=== PATIENT | female | born 1970 | race Caucasian/White ===

== ENCOUNTER 2019-06-12 09:01 | Inpatient (IN) ==
--- NOTE | 2019-06-12 09:37 | Emergency Department Note ---
Disposition Clinical Impression: Symptomatic anemia Fall Qualifiers: Encounter type: initial encounter Qualified Code(s): W19.XXXA - Unspecified fall, initial encounter Disposition: Admitted As Inpatient Condition: Fair Time of Disposition: 10:52 Fall HPI - General Chief Complaint: ED Fall Stated Complaint: tripped and fell at home Time Seen by Provider: 06/12/19 09:09 Source: patient, EMS Mode of arrival: EMS Limitations: no limitations Nursing Notes Reviewed: Yes Vital Signs Reviewed: Yes - History of Present Illness Pt Subjective Complaint: fall Onset (ago): Just [employer] Fall From: standing Fall Witnessed: yes Place Fall Occurred: home Loss of Consciousness: none Prolonged Down Time?: no Symptoms Prior to Fall: other (Patient said that her legs felt weak but she is very clear that the reason that she fell was that she caught her foot against the coffee table and caused her to trip) Context: tripped/slipped (Foot caught on a coffee table as she was getting up to answer the door to let her wound care nurse in the house to evaluate her dressings.) Location of injury: head (Patient they she hit her head) Location of injury - extremities: Left: ankle (Scraped lateral ankle) Severity: none Associated symptoms (after fall): Reports: denies - Related Data Home Medications Medication Instructions Recorded Confirmed Atorvastatin [Lipitor] 40 mg PO HS 10/06/18 06/12/19 Multivit-Min/Iron/Folic Acid/K 1 each PO DAILY 10/06/18 06/12/19 [Adults Multivitamin Caplet] Ascorbic Acid/Ascorbate Sodium 500 mg PO DAILY 11/13/18 06/12/19 [Vitamin C 500 mg Wafer] Famotidine [Acid Controller] 20 mg PO DAILY 12/17/18 06/12/19 Previous Rx's Medication Instructions Recorded HydrOXYzine [Atarax] 10 mg PO HS PRN #30 tablet 10/13/18 ALPRAZolam [Xanax 0.25 MG Tablet] 0.25 mg PO BID PRN 30 Days #60 12/02/18 tablet Doxycycline 100 mg PO BID #60 capsule 03/31/19 Charcoal/Alg/Hydrocolloid 5 each TP AD #30 bandage 04/01/19 [Carboflex 4"X4" Dressing] Dexamethasone [Decadron] 4 mg PO BID #45 tab 04/09/19 Lidocaine/Prilocaine [Emla] 1 appl TP AD PRN #30 gm 04/09/19 Magic Mouthwash [Magic Mouthwash 10 ml PO QID PRN #240 ml 04/09/19 BLM] Prochlorperazine Maleate 10 mg PO Q8HR PRN #60 tablet 04/09/19 [Compazine] Silver Sulfadiaz/Foam Bandage 1 each TP 3XW #42 bandage 04/10/19 [Allevyn Ag Adhesive 7"X7"] Meclizine HCl [Verticalm] 25 mg PO QID PRN #30 tablet 05/02/19 OxyCODONE Immed Rel [Roxicodone 5 5 mg PO Q8H PRN 30 Days #90 tablet 05/08/19 MG] Hydrocolloid Dressing [Duoderm] 1 each TP BID #1 pkg 05/25/19 Pegfilgrastim [Neulasta (For 6 mg SQ ONCE #1 syringe 05/25/19 Outpatient Infusion)] Allergies Allergy/AdvReac Type Severity Reaction Status Date / Time No Known Allergies Allergy Verified 05/02/19 11:05 All systems ED: reviewed and negative except as stated. Constitutional: Denies: fever Cardiovascular: Denies: chest pain, palpitations Respiratory: Denies: cough, dyspnea Gastrointestinal: Denies: abdominal pain, nausea, vomiting Musculoskeletal: Denies: back pain, neck pain, arthralgia Integumentary: Reports: abrasion (Lateral left ankle) Neurological: Denies: headache Fall PMH - Past Medical History Medical history: Reports: cancer, hyperlipidemia, other Surgical history: Reports: appendectomy, cancer surgery (Right breast biopsy, be ing evaluated for further surgery) Psychiatric history: Reports: no psych history - Social History Smoking Status: Never smoker Alcohol use: Reports: none Drug use: Reports: none Physical Exam - General Limitations: no limitations General appearance: alert, in no apparent distress - Head Head exam: atraumatic, normocephalic, normal inspection - Eye Eye exam: Present: normal appearance, PERRL, EOMI. Absent: scleral icterus, conjunctival injection - ENT ENT exam: normal exam, normal oropharynx, mucous membranes moist, normal external ear exam - Neck Neck exam: Present: normal inspection, full ROM, trachea midline - Chest Chest inspection: Present: normal inspection, symmetric chest wall rise. Absent: tenderness - Respiratory Respiratory exam: Present: normal lung sounds bilaterally. Absent: respiratory distress - Cardiovascular Cardiovascular exam: Present: regular rate, normal rhythm, normal heart sounds - Abdominal Exam Abdominal exam: Present: soft, Non-Tender, normal bowel sounds - Extremities Exam Extremities exam: Present: normal inspection, full ROM. Absent: tenderness, joint swelling - Back Exam Back exam: Present: full ROM. Absent: tenderness - Neurological Exam Neurological exam: Present: alert, oriented X3. Absent: motor sensory deficit - Psychiatric Psychiatric exam: Present: normal affect, normal mood - Skin Skin exam: Present: warm, dry Course Course Narrative: Patient says she had a mechanical fall and gives a very good description as to why she went down on the ground. However she says her legs did feel a bit wobbly and she had a hard time getting herself back up off the floor. She says she feels fine now here in the department. She thinks she hit her head. I am going to go ahead and CT her head and cervical spine. As far as the weakness and wobbliness, she is being treated for breast cancer and that by itself certainly could generate generalized weakness but one make sure she is not havi ng electrolytes abnormality or anemia or other issue. I will check some labs as well. Disposition will be based on diagnostic results and reevaluation. - Reevaluation(s) Reevaluation #1: CT scan of the head and cervical spine are negative. Shoulder x-rays negative. Patient's lab work came back showing an elevated white count but she is on Neulasta so that is not a surprise. Her hemoglobin was only 7.3. It has been trending down over the last couple of hemoglobin checks since May 22. I went and called the oncology department up at [facility] where the patient gets her treatment. She has an appointment scheduled for today. They felt that the patient getting a unit of blood would be the best thing and they would go ahead and reschedule the follow-up appointment. I went and spoke with Dr. Ag, our hospitalist here and he reduced that the patient for admission and transfusion. Time: 10:49 Reevaluation #2: Patient is been tachycardic since arrival but she had a small episode just a few minutes ago where she says she really feel good her blood pressure dipped down i nto the 90s. It bounced back up to the 110 systolic range with a heart rate is remained 120. We expect this to improve with the blood transfusion. I have ordered a liter of saline at this point as a bolus. Time: 11:17 - Consultations Consultation #1: [facility] oncology - I discussed the case with the oncology staff. I spoke with and she who was speaking with the patient's oncology nurse. They did not feel the patient is to be transferred up there. They did recommend transfusion and they will rearrange his follow-up outpatient appointment. Time: 10:35 Consultation #2: Dr. Ag, hospitalist - I discussed the case with the hospitalist. He is accepting the patient for admission Time: 10:45 Vital Signs Temperature 98 F 06/12/19 09:03 Pulse Rate 128 06/12/19 09:03 Respiratory Rate 18 06/12/19 09:03 Blood Pressure 109/70 06/12/19 09:03 O2 Sat by Pulse Oximetry 96 06/12/19 09:03 Temperature 98 F 06/12/19 09:03 Pulse Rate 128 06/12/19 11:04 Respiratory Rate 18 06/12/19 11:04 Blood Pressure 91/70 06/12/19 11:04 O2 Sat by Pulse Oximetry 95 06/12/19 11:04 Oxygen Delivery Oxygen Delivery Room Air Fall - Medical Records Medical records reviewed: Yes I reviewed the patient's medical records. - Lab Data Lab results reviewed: Yes I reviewed the patient's lab results. Result diagrams: 06/12/19 09:37 06/12/19 09:37 Lab Results 06/12/19 06/12/19 Range/Units 09:37 09:37 WBC 54.0 H* (4.3-11.1) K/mcL RBC 2.52 L (3.82-4.97) M/mcL Hgb 7.3 L (11.5-15.4) g/dL Hct 22.8 L (35.3-44.9) % MCV 90.5 (83.0-100.0) fL MCH 29.0 (28.0-33.3) pg MCHC 32.0 (31.6-35.5) g/dL RDW 20.2 H (11.5-14.5) % Plt Count 259 (140-400) K/mcL MPV 10.2 (9.4-12.4) fL Seg Neutrophils % 70.0 % Band Neutrophils % 10.0 H (0-4) % Lymphocytes % 6.0 % Monocytes % 2.0 % Metamyelocytes % 6.0 H (0) % Myelocytes % 4.0 H (0) % Promyelocytes % 2.0 H (0) % Neutrophils # 43.2 H (1.6-8.9) K/mcL Lymphocytes # 3.2 (0.6-4.6) K/mcL Monocytes # 1.1 (0.0-1.3) K/mcL Nucleated RBCs/100 WBC 0.2 H (0) /100 WBC Toxic Granulation Present A (Not Present) Toxic Vacuolation Present A (Not Present) Platelet Estimate Normal (Normal) Polychromasia 1+ A (Not Present) Sodium 133 L (136-145) mEq/L Potassium 3.7 (3.5-5.1) mEq/L Chloride 98 (98-107) mEq/L Carbon Dioxide 24 (23-29) mEq/L BUN 23 H (6-20) mg/dL Creatinine 1.22 H (0.60-1.20) mg/dL Est GFR ( Amer) 57 L (> 60) Est GFR (Non-Af Amer) 47 L (> 60) BUN/Creatinine Ratio 19 (6-26) Glucose 142 H (70-105) mg/dL Calculated Osmolality 282 (280-300) Calcium 9.4 (8.6-10.3) mg/dL - Radiology Data Radiology results reviewed: Yes I reviewed the patient's radiology results.
[2019-06-12 09:45] LABS: Hematocrit 22.8 % (35.3-44.9); Hemoglobin 7.3 g/dL (11.5-15.4); Mean Corpuscular Volume 90.5 fL (83.0-100.0); Mean Platelet Volume 10.2 fL (9.4-12.4); Nucleated Red Blood Cells 0.2 /100 WBC (0); Platelet Count 259 K/mcL (140-400); Red Blood Count 2.52 M/mcL (3.82-4.97); Red Cell Distribution Width 20.2 % (11.5-14.5)
[2019-06-12 10:01] LABS: Calcium 9.4 mg/dL (8.6-10.3); Potassium 3.7 mEq/L (3.5-5.1)
[2019-06-12 10:10] LABS: Lymphocytes # 3.2 K/mcL (0.6-4.6); Monocytes # 1.1 K/mcL (0.0-1.3); Neutrophils # 43.2 K/mcL (1.6-8.9)
[2019-06-12 10:11] LABS: Platelet Estimate Normal (Normal); Polychromasia 1+ (Not Present); Toxic Granulation Present (Not Present); Toxic Vacuolation Present (Not Present)
[2019-06-12] MEDS ORDERED: 0.9 % Sodium Chloride 1,000 ML ONE (11:04)
[2019-06-12] MEDS ORDERED: 0.9 % Sodium Chloride 1,000 ML IVC ONE (11:18)
[2019-06-12] MEDS ORDERED: Magic Mouthwash 10 ML UD Cup PO PRN (13:16)
[2019-06-12] MEDS ORDERED: Naloxone 0.4 MG/ML INJ IVP PRN (13:16)
[2019-06-12] MEDS ORDERED: *HR* OxyCODONE Immed Rel 5 MG TABLET PO PRN (13:16)
--- NOTE | 2019-06-12 16:29 | Internal Med History&Physical ---
Date of Encounter: 06/12/19 Time of Encounter: 15:50 Assessment and Plan (1) Acute renal failure Current visit: Yes Status: Acute IV fluids have been started. Renal indices will be monitored. Qualifiers: Acute renal failure type: unspecified Qualified Code(s): N17.9 - Acute kidney failure, unspecified (2) Neutrophilic leukocytosis Current visit: Yes Status: Acute Blood and urine cultures have been ordered. She will be started empirically on vancomycin, Zosyn, and Levaquin. (3) Symptomatic anemia Current visit: Yes Status: Acute Blood transfusion has been ordered through emergency room. Anemia testing has been ordered. (4) Breast cancer Current visit: No Status: Acute As per oncologist. Qualifiers: Breast location: overlapping sites of breast Estrogen receptor status: negative Patient sex: female Laterality: right Qualified Code(s): C50.811 - Malignant neoplasm of overlapping sites of right female breast; Z17.1 - Estrogen receptor negative status [ER-] Internal Medicine - H&P: HPI Chief complaint: Fall, anemia Admitted From: Emergency Dept Plans for Post Hospital Care: Home History of present illness: Ms. Garcia is a 48 year old female came to emergency room after having a fall at home with inability to get up. She reports she was opening the door to let a home health worker in her house when she tripped and landed on a coffee table. She reports she had weakness in her legs and was unable to get off the coffee table. The home health worker called EMS and the patient was brought to emergency room. She was found to have significant anemia with hemoglobin 7.3. WBC was significantly elevated at 54.0 with bandemia. She had acute renal insufficiency. She was admitted to Medr floor for ongoing care needs. Past Med Surg Social Fam HX - Past Medical History Medical history: cancer, hyperlipidemia, other Additional medical history: breast cancer. neuropathy Psychiatric history: no psych history - Past Surgical History Surgical History: appendectomy, cancer surgery (Right breast biopsy, being evaluated for further surgery) Additional surgical history: powerport to chest - Social History Smoking Status: Former smoker Smokeless Tobacco Status: No Alcohol use: none Drug use: none Internal Medicine - H&P: Meds Atorvastatin [Lipitor] 40 mg PO HS 10/06/18 [History] Multivit-Min/Iron/Folic Acid/K [Adults Multivitamin Caplet] 1 each PO DAILY 10/06/18 [History] HydrOXYzine [Atarax] 10 mg PO HS PRN #30 tablet 10/13/18 [Rx] Ascorbic Acid/Ascorbate Sodium [Vitamin C 500 mg Wafer] 500 mg PO DAILY 11/13/18 [History] ALPRAZolam [Xanax 0.25 MG Tablet] 0.25 mg PO BID PRN 30 Days #60 tablet 12/02/18 [Rx] Famotidine [Acid Controller] 20 mg PO DAILY 12/17/18 [History] Doxycycline 100 mg PO BID #60 capsule 03/31/19 [Rx] Charcoal/Alg/Hydrocolloid [Carboflex 4"X4" Dressing] 5 each TP AD #30 bandage 04/01/19 [Rx] Dexamethasone [Decadron] 4 mg PO BID #45 tab 04/09/19 [Rx] Lidocaine/Prilocaine [Emla] 1 appl TP AD PRN #30 gm 04/09/19 [Rx] Magic Mouthwash [Magic Mouthwash BLM] 10 ml PO QID PRN #240 ml 04/09/19 [Rx] Prochlorperazine Maleate [Compazine] 10 mg PO Q8HR PRN #60 tablet 04/09/19 [Rx] Silver Sulfadiaz/Foam Bandage [Allevyn Ag Adhesive 7"X7"] 1 each TP 3XW #42 bandage 04/10/19 [Rx] Meclizine HCl [Verticalm] 25 mg PO QID PRN #30 tablet 05/02/19 [Rx] OxyCODONE Immed Rel [Roxicodone 5 MG] 5 mg PO Q8H PRN 30 Days #90 tablet 05/08/19 [Rx] Hydrocolloid Dressing [Duoderm] 1 each TP BID #1 pkg 05/25/19 [Rx] Pegfilgrastim [Neulasta (For Outpatient Infusion)] 6 mg SQ ONCE #1 syringe 05/25/19 [Rx] Allergy/AdvReac Type Severity Reaction Status Date / Time No Known Allergies Allergy Verified 05/02/19 11:05 All Systems PM: A 10-system review of systems was performed and is negative for pertinent findings except as documented above in the HPI. Review of systems: Gen.: She states her weight has decreased approximately 50 pounds in the past year Cardiovascular: She denies hypertension MO heart failure angina DVT or pulmonary embolus Respiratory: She smoked from age [age] a total of 27 years never exceeding 1 pack per day. She denies chronic lung disease and does not use home oxygen. She denies testing for ZOË. GI: She has occasional GERD symptoms. She denies disorders of her liver gallbladder or exocrine pancreas : She denies hematuria dysuria or kidney stones Neurologic: She denies large distribution strokes or seizures. Endocrine: She has history of hyperlipidemia. She denies diabetes or thyroid disease. Hematology/oncology: She was diagnosed with right breast cancer approximately September 2018 and follows with [facility] oncologists. She reports it is stage IIIc. She has received chemotherapy but denies surgery or XRT. CT scan in emergency room today showed progression of nathalie metastases. She has anemia. She denies other internal malignancies Psychiatric: She denies anxiety depression other mental health issues [place] skeletal: She denies arthritis gout or other bone joint or muscle disorders. - Constitutional Vitals: Temp Pulse Resp BP Pulse Ox 98 F 122 12 109/78 94 06/12/19 09:03 06/12/19 12:30 06/12/19 12:30 06/12/19 12:30 06/12/19 12:30 Exam: Gen.: She is a well-developed overweight female lying in bed who appears in no acute distress HEENT: Head is atraumatic and normocephalic. Eyes: EOMI. There is no scleral icterus. Mouth: Mucosa is moist. Neck: Supple and nontender. There is no thyromegaly or adenopathy noted. Heart: Regular without murmurs gallops or ectopics. Rate is approximately 108/m. Lungs: No wheezes or crackles are heard. Abdomen: She has a large abdomen. It is soft and nontender. No masses or guarding are noted. Extremities: There is no cyanosis edema or clubbing noted. Dorsalis pedis and posterior tibial pulses are 1-2 over 2 bilaterally. She has significant lymphedema of the right arm. A gauze dressing covers an Allevyn above the right lateral posterior elbow area. Neurologic: Mental status: She is able to answer questions but appears slightly lethargic. Cranial nerves: Smile is symmetric. Forehead wrinkles bilaterally. Tongue protrudes midline. EOMI. Motor: There is no pronator drift. Cerebellar: Finger to nose is intact bilaterally. Skin: Warm and dry. Internal Med - H&P Results - Labs CBC & Chem 7: 06/12/19 09:37 06/12/19 09:37 Labs: Short CBC 06/12/19 Range/Units 09:37 WBC 54.0 H* (4.3-11.1) K/mcL Hgb 7.3 L (11.5-15.4) g/dL Hct 22.8 L (35.3-44.9) % Plt Count 259 (140-400) K/mcL Neutrophils # 43.2 H (1.6-8.9) K/mcL BMP 06/12/19 09:37 Sodium 133 L Potassium 3.7 Chloride 98 Carbon Dioxide 24 BUN 23 H Creatinine 1.22 H Glucose 142 H Calcium 9.4 - Impressions ITS Impressions Cervical Spine CT 06/12/19 09:15 IMPRESSION: No acute abnormality of the cervical spine. D/ / Giuseppe Sullivan MD / Giuseppe Sullivan MD Interpreting Provider: Giuseppe Sullivan MD Head CT 06/12/19 09:15 IMPRESSION: No acute intracranial abnormality. D/ / Giuseppe Sullivan MD / Giuseppe Sullivan MD Interpreting Provider: Giuseppe Sullivan MD Shoulder X-Ray 06/12/19 10:04 IMPRESSION: Negative right shoulder with no acute abnormality. D/ / Riley Alas MD / Riley Alas MD Interpreting Provider: Riley Alas MD
[2019-06-12] MEDS ORDERED: levoFLOXacin 750 MG/150 ML 750 MG/150 ML BAG IVPB SCH (19:00)
[2019-06-12] MEDS ORDERED: Vancomycin 500 MG in 0.9 % Sodium Chloride Mini Bag 100 ML IVPB ONE (20:00)
[2019-06-12] MEDS ORDERED: HYDROCOLLOID DRESSING TP SCH (21:00)
[2019-06-12] MEDS ORDERED: Doxycycline 100 MG CAPSULE PO SCH (21:00)
[2019-06-12] MEDS: Lactobacillus 1 EACH CAP.SPRINK PO SCH (21:56)
[2019-06-12] MEDS: ALPRAZolam 0.25 MG TABLET PO PRN (21:56)
[2019-06-12] MEDS ORDERED: 0.9 % Sodium Chloride 250 ML ONE (23:09)
[2019-06-13] MEDS: levoFLOXacin 750 MG/150 ML 750 MG/150 ML BAG IVPB SCH (02:29)
[2019-06-13] MEDS ORDERED: Vancomycin 500 MG in 0.9 % Sodium Chloride Mini Bag 100 ML IVPB ONE (03:00)
[2019-06-13] MEDS: 0.45 % Sodium Chloride w/KCl 20 MEQ/1,000 ML MLS IVC SCH ×3 (04:49→21:43)
[2019-06-13] MEDS: *HR* Enoxaparin 40 MG/0.4 ML SYRINGE SQ SCH (04:55)
[2019-06-13] MEDS: *HR* OxyCODONE Immed Rel 5 MG TABLET PO PRN ×5 (05:18→19:30)
[2019-06-13 05:55] LABS: Hematocrit 26.8 % (35.3-44.9); Hemoglobin 8.5 g/dL (11.5-15.4); Mean Corpuscular HGB Conc 31.7 g/dL (31.6-35.5); Mean Corpuscular Hemoglobin 28.7 pg (28.0-33.3); Mean Corpuscular Volume 90.5 fL (83.0-100.0); Mean Platelet Volume 10.2 fL (9.4-12.4); Nucleated Red Blood Cells 0.1 /100 WBC (0); Platelet Count 235 K/mcL (140-400); Red Blood Count 2.96 M/mcL (3.82-4.97); Red Cell Distribution Width 19.7 % (11.5-14.5)
[2019-06-13 06:09] LABS: White Blood Count 45.4 K/mcL (4.3-11.1)
[2019-06-13 06:22] LABS: Alanine Aminotransferase 15 Units/L (7-52); Albumin 2.6 g/dL (3.5-5.7); Alkaline Phosphatase 169 Units/L (34-104); Aspartate Amino Transferase 31 Units/L (13-39); BUN/Creatinine Ratio 25 (6-26); Bilirubin,Total 0.5 mg/dL (0.3-1.0); Blood Urea Nitrogen 19 mg/dL (6-20); Calcium 8.9 mg/dL (8.6-10.3); Carbon Dioxide 24 mEq/L (23-29); Chloride 103 mEq/L (98-107); Globulin 2.7 g/dL (2.4-3.5); Glucose 157 mg/dL (70-105); Magnesium 1.3 mg/dL (1.6-2.6); Osmolality,Calculated 290 (280-300); Potassium 3.7 mEq/L (3.5-5.1); Sodium 137 mEq/L (136-145); Total Protein 5.3 g/dL (6.4-8.9); eGFR For African Americans > 60 (> 60); eGFR For Non-African Americans > 60 (> 60)
[2019-06-13 06:32] LABS: Thyroid Stimulating Hormone 1.262 mcIU/mL (0.340-5.600)
[2019-06-13 06:41] LABS: Lymphocytes # 2.7 K/mcL (0.6-4.6); Monocytes # 2.7 K/mcL (0.0-1.3); Neutrophils # 38.1 K/mcL (1.6-8.9)
[2019-06-13 06:42] LABS: Anisocytosis 1+ (Not Present); Platelet Estimate Normal (Normal)
[2019-06-13 06:43] LABS: Toxic Granulation Present (Not Present)
[2019-06-13 09:28] LABS: % Iron Saturation 13 % (15-50); Iron 24 mcg/dL (50-170); Transferrin 135 mg/dL (203-362)
[2019-06-13 09:46] LABS: Ferritin 1435 ng/mL (10-120)
[2019-06-13] MEDS: Multivit/Ca/Min/Fe/FA 1 TAB TABLET PO SCH (09:51)
[2019-06-13] MEDS: Lactobacillus 1 EACH CAP.SPRINK PO SCH ×2 (09:51→21:42)
[2019-06-13 09:52] LABS: Folate 13.6 ng/mL (3.0-16.0)
[2019-06-13] MEDS: Famotidine 20 MG TABLET PO SCH (09:52)
[2019-06-13 09:54] LABS: Vitamin B12 > 1500 pg/mL (250-1100)
--- NOTE | 2019-06-13 14:57 | Internal Med Progress Note ---
Date of Encounter: 06/13/19 Time of Encounter: 14:45 - Assessment and plan (1) Acute renal failure Current Visit: Yes Status: Acute Assessment and plan: June 13. Resolved. BUN and creatinine are 19 and 0.76 respectively with e stimated GFR> 60. Continue IV fluids at decreased rate. Qualifiers: Acute renal failure type: unspecified Qualified Code(s): N17.9 - Acute kid sher failure, unspecified (2) Neutrophilic leukocytosis Current Visit: Yes Status: Acute Assessment and plan: June 13. WBC has decreased to 45.4 with persistent left shift. Blood cultures are negative to date. Urine culture has not been sent. Pro-calcitonin level elevated at 1.84. Continue IV Levaquin, Zosyn, and vancomycin. (3) Symptomatic anemia Current Visit: Yes Status: Acute Assessment and plan: June 13. Hemoglobin has risen to 8.5 after 2 units packed red blood cell transfusion. Anemia testing showed iron 24, transferrin saturation 13%, transferrin 135, ferritin 1435, B12 >1500, and folate 13.6. Continue to monitor CBC. (4) Breast cancer Current Visit: No Status: Acute Assessment and plan: June 13. As per oncologist. She confirms she wanted ongoing aggressive intervention and did not wish hospice at this time. Qualifiers: Breast location: overlapping sites of breast Estrogen receptor status: negative Patient sex: female Laterality: right Qualified Code(s): C50.811 - Malignant neoplasm of overlapping sites of right female breast; Z17.1 - Est rogen receptor negative status [ER-] (5) Hypomagnesemia Current Visit: Yes Status: Acute Assessment and plan: June 13. Magnesium level low at 1.3. Start magnesium oxide 400 mg twice a day. - Subjective Interval history: June 13. She has no new complaints. - Constitutional Vitals: Temp Pulse Resp BP Pulse Ox 98.1 F 104 16 102/66 96 06/13/19 10:48 06/13/19 10:48 06/13/19 10:48 06/13/19 07:36 06/13/19 10:48 Exam: She is lying in bed and appears in no discomfort without movement. The right breast dressing was removed which showed the entire right breast without overlying scan and completely covered in exudate and slough. There is a necrotic tissue odor present. The surrounding margin showed inflammatory erythematous nodules. Ankles show trace pitting edema. I reviewed her medications and lab results. Internal Medicine: Result - Labs CBC & Chem 7: 06/13/19 05:02 06/13/19 05:02 Labs: Short CBC 06/13/19 Range/Units 05:02 WBC 45.4 H* (4.3-11.1) K/mcL Hgb 8.5 L (11.5-15.4) g/dL Hct 26.8 L (35.3-44.9) % Plt Count 235 (140-400) K/mcL Neutrophils # 38.1 H (1.6-8.9) K/mcL BMP 06/13/19 05:02 Sodium 137 Potassium 3.7 Chloride 103 Carbon Dioxide 24 BUN 19 Creatinine 0.76 Glucose 157 H Calcium 8.9 Liver Function 06/13/19 Range/Units 05:02 Total Bilirubin 0.5 (0.3-1.0) mg/dL AST 31 (13-39) Units/L ALT 15 (7-52) Units/L Alkaline Phosphatase 169 H (34-104) Units/L Albumin 2.6 L (3.5-5.7) g/dL Consult Discharge Plan - Plan Referrals: Hazel Mendoza, CLINICAL COORDINATOR [Primary Care Provider] - 1 week
[2019-06-13] MEDS: ALPRAZolam 0.25 MG TABLET PO PRN (21:42)
[2019-06-13] MEDS: Magnesium Oxide 400 MG TABLET PO SCH (21:42)
[2019-06-14] MEDS: *HR* OxyCODONE Immed Rel 5 MG TABLET PO PRN ×4 (02:44→17:19)
[2019-06-14] MEDS: levoFLOXacin 750 MG/150 ML 750 MG/150 ML BAG IVPB SCH (02:47)
[2019-06-14] MEDS: *HR* Enoxaparin 40 MG/0.4 ML SYRINGE SQ SCH (05:12)
[2019-06-14 06:48] LABS: Hematocrit 26.6 % (35.3-44.9); Hemoglobin 8.7 g/dL (11.5-15.4); Mean Corpuscular HGB Conc 32.7 g/dL (31.6-35.5); Mean Corpuscular Hemoglobin 29.5 pg (28.0-33.3); Mean Corpuscular Volume 90.2 fL (83.0-100.0); Nucleated Red Blood Cells 0.1 /100 WBC (0); Platelet Count 276 K/mcL (140-400); Red Blood Count 2.95 M/mcL (3.82-4.97)
[2019-06-14 06:53] LABS: White Blood Count 58.2 K/mcL (4.3-11.1)
[2019-06-14 07:00] LABS: BUN/Creatinine Ratio 25 (6-26); Blood Urea Nitrogen 14 mg/dL (6-20); Calcium 8.6 mg/dL (8.6-10.3); Carbon Dioxide 24 mEq/L (23-29); Chloride 104 mEq/L (98-107); Glucose 138 mg/dL (70-105); Osmolality,Calculated 289 (280-300); Potassium 4.4 mEq/L (3.5-5.1); Sodium 138 mEq/L (136-145); eGFR For African Americans > 60 (> 60); eGFR For Non-African Americans > 60 (> 60)
[2019-06-14 07:49] LABS: Neutrophils # 53.5 K/mcL (1.6-8.9)
[2019-06-14 07:50] LABS: Lymphocytes # 1.2 K/mcL (0.6-4.6)
[2019-06-14 07:53] LABS: Anisocytosis 2+ (Not Present)
[2019-06-14 07:54] LABS: Dohle Bodies Present (Not Present); Polychromasia 1+ (Not Present)
[2019-06-14 07:55] LABS: Hypochromasia Present (Not Present); Platelet Clumps Few (Not Present); Platelet Estimate Normal (Normal); Toxic Granulation Present (Not Present)
[2019-06-14 07:57] LABS: Toxic Vacuolation Present (Not Present)
[2019-06-14] MEDS: Magnesium Oxide 400 MG TABLET PO SCH (08:51)
[2019-06-14] MEDS: Lactobacillus 1 EACH CAP.SPRINK PO SCH (08:51)
[2019-06-14] MEDS: Famotidine 20 MG TABLET PO SCH (08:51)
[2019-06-14] MEDS: Multivit/Ca/Min/Fe/FA 1 TAB TABLET PO SCH (08:51)
[2019-06-14] MEDS: ALPRAZolam 0.25 MG TABLET PO PRN (08:51)
[2019-06-14] MEDS: 0.45 % Sodium Chloride w/KCl 20 MEQ/1,000 ML MLS IVC SCH (12:47)
[2019-06-14 14:33] VITALS: BP 161/84
--- NOTE | 2019-06-14 15:16 | Discharge Summary ---
Orders not resulted at time of discharge: Pending orders 06/12/19 23:10 Culture,Blood [BC] Stat Date of Encounter: 06/14/19 Time of Encounter: 15:05 - Discharge Diagnosis (1) Acute renal failure Priority: Primary Status: Acute Qualifiers: Acute renal failure type: unspecified Qualified Code(s): N17.9 - Acute kidney failure, unspecified (2) Neutrophilic leukocytosis Priority: Secondary Status: Acute (3) Symptomatic anemia Priority: Secondary Status: Acute (4) Breast cancer Priority: Secondary Status: Acute Qualifiers: Breast location: overlapping sites of breast Estrogen receptor status: negative Patient sex: female Laterality: right Qualified Code(s): C50.811 - Malignant neoplasm of overlapping sites of right female breast; Z17.1 - Estrogen receptor negative status [ER-] (5) Hypomagnesemia Priority: Secondary Status: Acute Hospital course: Ms. Garcia is a 48 year old female who came to emergency room after having a fall at home with inability to get up. She reports she was opening the door to let a home health worker in her house when she tripped and landed on a coffee table. She reports she had weakness in her legs and was unable to get off the coffee table. The home health worker called EMS and the patient was brought to emergency room. She was found to have significant anemia with hemoglobin 7.3. WBC was significantly elevated at 54.0 with bandemia. She had acute renal insufficiency. She was admitted to [facility] floor for ongoing care needs. Initial orders were written by the emergency room physician. I saw her on June 12 performed a history and physical. She was given IV fluids. Azotemia resolved with BUN and creatinine decreased to 14 and 0.56 respectively by day of transfer. She was given 2 units packed red blood cells to emergency room. Hemoglobin stacy to 8.5 by the following day and increased further to 8.7 on June 14. Anemia testing showed no factor deficiency. Urine and blood cultures were ordered to further evaluate the leukocytosis. Blood culture report is pending at time of transfer. Pro-calcitonin returned elevated at 1.84. She was started empirically on IV Levaquin, Zosyn, and vancomycin. WBC improved to 45.4 on June 13 but stacy to 58.2 with worsened left shift on June 14. I had multiple discussions with her throughout the day [facility] and told her if she wanted to continue aggressive plan of care she would need to be transferred. She reported she had been seen at [facility] primarily but also had been evaluated at [facility]. After lengthy deliberation she chose transfer to [facility]. Contact was made with [facility] bed management to arrange transfer. - Time Spent with Patient Total time spent providing and/or coordinating discharge services: - Discharge Medications Prescriptions: No Action Atorvastatin [Lipitor] 40 mg PO HS Multivit-Min/Iron/Folic Acid/K [Adults Multivitamin Caplet] 1 each PO DAILY HydrOXYzine [Atarax] 10 mg PO HS PRN #30 tablet PRN Reason: Itching Ascorbic Acid/Ascorbate Sodium [Vitamin C 500 mg Wafer] 500 mg PO DAILY ALPRAZolam [Xanax 0.25 MG Tablet] 0.25 mg PO BID PRN 30 Days #60 tablet PRN Reason: Anxiety Famotidine [Acid Controller] 20 mg PO DAILY Doxycycline 100 mg PO BID #60 capsule Charcoal/Alg/Hydrocolloid [Carboflex 4"X4" Dressing] 5 each TP AD #30 bandage Prochlorperazine Maleate [Compazine] 10 mg PO Q8HR PRN #60 tablet PRN Reason: Nausea Lidocaine/Prilocaine [Emla] 1 appl TP AD PRN #30 gm PRN Reason: as directed Magic Mouthwash [Magic Mouthwash BLM] 10 ml PO QID PRN #240 ml PRN Reason: Mouth Irritation Dexamethasone [Decadron] 4 mg PO BID #45 tab Silver Sulfadiaz/Foam Bandage [Allevyn Ag Adhesive 7"X7"] 1 each TP 3XW #42 bandage OxyCODONE Immed Rel [Roxicodone 5 MG] 5 mg PO Q8H PRN 30 Days #90 tablet PRN Reason: Pain Pegfilgrastim [Neulasta (For Outpatient Infusion)] 6 mg SQ ONCE #1 syringe Hydrocolloid Dressing [Duoderm] 1 each TP BID #1 pkg Meclizine HCl [Verticalm] 25 mg PO QID PRN #30 tablet PRN Reason: Vertigo Home Medications: Atorvastatin [Lipitor] 40 mg PO HS 10/06/18 [History] Multivit-Min/Iron/Folic Acid/K [Adults Multivitamin Caplet] 1 each PO DAILY 11/26/18 [History] HydrOXYzine [Atarax] 10 mg PO HS PRN #30 tablet 10/13/18 [Rx] Ascorbic Acid/Ascorbate Sodium [Vitamin C 500 mg Wafer] 500 mg PO DAILY 11/13/18 [History] ALPRAZolam [Xanax 0.25 MG Tablet] 0.25 mg PO BID PRN 30 Days #60 tablet 12/02/18 [Rx] Famotidine [Acid Controller] 20 mg PO DAILY 12/17/18 [History] Doxycycline 100 mg PO BID #60 capsule 03/31/19 [Rx] Charcoal/Alg/Hydrocolloid [Carboflex 4"X4" Dressing] 5 each TP AD #30 bandage 04/01/19 [Rx] Dexamethasone [Decadron] 4 mg PO BID #45 tab 04/09/19 [Rx] Lidocaine/Prilocaine [Emla] 1 appl TP AD PRN #30 gm 04/09/19 [Rx] Magic Mouthwash [Magic Mouthwash BLM] 10 ml PO QID PRN #240 ml 04/09/19 [Rx] Prochlorperazine Maleate [Compazine] 10 mg PO Q8HR PRN #60 tablet 04/09/19 [Rx] Silver Sulfadiaz/Foam Bandage [Allevyn Ag Adhesive 7"X7"] 1 each TP 3XW #42 bandage 04/10/19 [Rx] Meclizine HCl [Verticalm] 25 mg PO QID PRN #30 tablet 05/02/19 [Rx] OxyCODONE Immed Rel [Roxicodone 5 MG] 5 mg PO Q8H PRN 30 Days #90 tablet 05/08/19 [Rx] Hydrocolloid Dressing [Duoderm] 1 each TP BID #1 pkg 05/25/19 [Rx] Pegfilgrastim [Neulasta (For Outpatient Infusion)] 6 mg SQ ONCE #1 syringe 05/25/19 [Rx] Allergies/Adverse Reactions: Allergy/AdvReac Type Severity Reaction Status Date / Time No Known Allergies Allergy Verified 05/02/19 11:05 Date of admission: 06/12/19 19:06 Primary care physician: Hazel Mendoza CNP Consults: 06/12/19 14:00 Consult to Nutrition [CONS] Routine Comment: Consulting Provider: NUTRITION Reason for Dietary Consult: MST Score Other:: metastatic brest cancer Consult to Pipe Puller [CONS] Routine Reason for SW Consult: possible snf needs - Constitutional Vitals: Temp Pulse Resp BP Pulse Ox 97.4 F L 112 24 161/84 97 06/14/19 14:19 06/14/19 14:19 06/14/19 14:19 06/14/19 14:19 06/14/19 14:19 - Patient Status Disposition: Transfer Other Condition: Fair - Discharge Instructions
[2019-06-14] MEDS ORDERED: Aminoglycoside Consult 1 EACH MC ONE (17:26)
== END 2019-06-14 17:27 | disposition other institution (70) | DRG 469 ==
LOC: EMEROOPIK 09:01 → INPPIK 09:01
PROVIDERS: ADMIT Internal Medicine; ATTEND Internal Medicine